=== PATIENT | male | born 2005 | race Hispanic/Latino ===

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

== ENCOUNTER 2025-05-13 21:34 | Emergency (ER) | payer OTHER, SELFPAY ==
[2025-05-13] MEDS ORDERED: Ibuprofen 800 MG TAB ONE (22:03)
[2025-05-13] MEDS ORDERED: Acetaminophen 500 MG TAB ONE (22:03)
== END 2025-05-13 23:31 | disposition home or self-care (01) ==
LOC: MADERS 21:34
DX: K52.9 Noninfective gastroenteritis and colitis, unspecified (principal)
CPT/HCPCS: 99283; Q0162